=== PATIENT | female | born 1945 | race Caucasian/White ===

== ENCOUNTER 2020-08-20 07:39 | Day surgery (SDC) | payer MEDICARE ==
[2020-08-20] MEDS ORDERED: fentaNYL 100 MCG/2 ML SDV ONE (08:10)
[2020-08-20] MEDS ORDERED: Propofol 200 MG/20 ML SDV ONE (08:10)
[2020-08-20] MEDS ORDERED: Midazolam 1 MG/ML 2 ML SDV ONE (08:11)
[2020-08-20] MEDS ORDERED: Sodium Chloride 0.9% 1,000 ML IV SCH (08:30)
--- NOTE | 2020-08-20 11:15 | OR ---
DATE OF PROCEDURE: SURGEON: Paoc Mcfarland MD PROCEDURES: 1. Esophagogastroduodenoscopy. 2. Colonoscopy. FINDINGS: 1. 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 2. Marginal ulcer in proximity to the aforementioned fistula. 3. Mild gastritis in the gastric pouch. 4. Diverticulosis, extensive, mostly limited to sigmoid colon. PREOPERATIVE DIAGNOSIS: Unintentional weight loss. POSTOPERATIVE DIAGNOSIS: Unintentional weight loss. RISKS: Risks, benefits, alternatives, and limitations including but not limited to infection, bleeding, perforation, and false positives and false negatives were explained to the patient and wished to proceed. PROCEDURE IN DETAIL: The patient was placed in left lateral decubitus position. The EGD scope was introduced and advanced atraumatically into the area of the pouch. Marginal ulcer was noted. This was not actively bleeding, but clots were noted with this. The patient did have some mild gastritis associated with this. In addition, the patient had a blind end Ivelisse-en-Y limb and subsequently an additional opening, which could be used with the scope to enter the remnant stomach. The GE junction was inspected without abnormality. The esophagus was normal. A digital rectal exam was performed next. The scope was introduced and advanced atraumatically to the ileocecal valve. A photo was taken. The scope was brought back through the entire colon. She was noted to be very tortuous. The patient also had diverticulosis that was described as [id number] within the sigmoid colon without evidence of diverticulitis. DICTATION ENDS HERE. Paco Mcfarland MD /[id number]
[2020-08-20 13:10] VITALS: BP 105/64; PULSE 60
== END 2020-08-20 11:05 | disposition home or self-care (01) ==
LOC: JP.SDS 07:39
PROVIDERS: ATTEND Surgery
DX: K25.9 Gastric ulcer, unspecified as acute or chronic, without hemorrhage or perforation (principal); K29.70 Gastritis, unspecified, without bleeding; K57.30 Diverticulosis of large intestine without perforation or abscess without bleeding; K31.6 Fistula of stomach and duodenum; R63.4 Abnormal weight loss
CPT/HCPCS: 43239; 45378; J2250; J2704; J3010; J7030

== ENCOUNTER 2022-06-29 17:49 | Emergency (ER) | payer MEDICARE ==
[2022-06-29 18:01] VITALS: BP 107/50; PULSE 57
== END 2022-06-29 18:58 | disposition home or self-care (01) ==
LOC: JP.ED 17:49
DX: E86.0 Dehydration (principal); E03.9 Hypothyroidism, unspecified; Z79.899 Other long term (current) drug therapy; Z98.84 Bariatric surgery status; Z72.0 Tobacco use; Z90.49 Acquired absence of other specified parts of digestive tract
CPT/HCPCS: 93005; 99284

== ENCOUNTER 2022-08-29 07:18 | Day surgery (SDC) | payer MEDICARE ==
[2022-08-29] MEDS ORDERED: Dextrose 5%-Lactated Ringers 1,000 ML IV SCH (08:00)
[2022-08-29] MEDS ORDERED: Propofol 200 MG/20 ML SDV ONE (09:09)
[2022-08-29 10:36] VITALS: BP 122/56; PULSE 62
[2022-08-29 11:29] LABS: HEMATOCRIT 41.1 % (34.3-46.0); HEMOGLOBIN 13.4 g/dL (11.2-15.5); MEAN CORPUSCULAR HEMOGLOBIN 32.2 pg (31.6-35.5); MEAN CORPUSCULAR HGB CONC 32.6 g/dL (31.6-35.5); MEAN CORPUSCULAR VOLUME 98.8 fL (81.4-99.0); RED BLOOD CELL COUNT 4.16 M/uL (3.77-5.24); WHITE BLOOD CELL COUNT,WBC 4.5 K/uL (3.2-11.0)
[2022-08-29 12:14] LABS: A/G RATIO 1.1 (1.2-2.2); ALANINE AMINOTRANSFERASE,ALT 19 U/L (12-78); ALBUMIN 3.5 g/dL (3.4-5.0); ALKALINE PHOSPHATASE 86 U/L (46-116); ANION GAP 5.1 mmol/L (5.0-14.0); ASPARTATE AMNIOTRANSFERASE,AST 19 U/L (15-37); BILIRUBIN TOTAL 0.5 mg/dL (0.2-1.0); BLOOD UREA NITROGEN,BUN 10 mg/dL (7-18); CARBON DIOXIDE,CO2 31 mmol/L (21-32); CHLORIDE,CL 105 mmol/L (100-108); CREATININE 0.8 mg/dL (0.6-1.0); EST CRCL DRUG DOSING (CG) 44.98 mL/min; ESTIMATED GFR 76 mL/min (>60); FERRITIN 55 ng/ml (8-388); GLUCOSE RANDOM 115 mg/dL (74-106); PHOSPHORUS 3.4 mg/dL (2.5-4.9); PROTEIN TOTAL,TP 6.7 g/dL (6.4-8.2); SODIUM,NA 141 mmol/L (140-148)
== END 2022-08-29 11:20 | disposition home or self-care (01) ==
LOC: JP.SDS 07:18
PROVIDERS: ATTEND Surgery
DX: K31.6 Fistula of stomach and duodenum (principal); R63.4 Abnormal weight loss; E03.9 Hypothyroidism, unspecified; K90.9 Intestinal malabsorption, unspecified; Z98.84 Bariatric surgery status; Z87.19 Personal history of other diseases of the digestive system
CPT/HCPCS: 43235; 80053; 82306; 82525; 82607; 82728; 82746; 83735; 83970; 84100; 84255; 84425; 84590; 84630; 85027; J2704; J7121; 36415

== ENCOUNTER 2023-09-17 08:49 | Emergency (ER) | payer MEDICARE ==
[2023-09-17] MEDS: Sodium Chloride 0.9% 1,000 ML IV STA (09:21)
[2023-09-17] MEDS: Ondansetron 4 MG/2 ML SDV IVPUSH ONE (09:22)
[2023-09-17 09:33] LABS: BASOPHILS PERCENT AUTO 0.2 % (0.1-1.3); EOSINOPHILS PERCENT AUTO 0.2 % (0.0-5.4); HEMATOCRIT 39.2 % (34.3-46.0); HEMOGLOBIN 13.2 g/dL (11.2-15.5); IMMATURE GRAN ABSOLUTE AUTO 0.03 K/uL (0.00-0.23); IMMATURE GRAN PERCENT AUTO 0.3 % (0.0-0.7); LYMPHOCYTES ABSOLUTE AUTO 0.49 K/uL (0.8-3.3); LYMPHOCYTES PERCENT AUTO 5.7 % (11.4-47.7); MEAN CORPUSCULAR HEMOGLOBIN 32.4 pg (31.6-35.5); MEAN CORPUSCULAR HGB CONC 33.7 g/dL (31.6-35.5); MEAN CORPUSCULAR VOLUME 96.1 fL (81.4-99.0); MONOCYTES ABSOLUTE AUTO 0.17 K/uL (0.20-0.90); NEUTROPHILS ABSOLUTE AUTO 7.94 K/uL (1.0-7.6); NEUTROPHILS PERCENT AUTO 91.6 % (40.0-78.1); PLATELET COUNT,PLT 164 K/uL (130-375); RED BLOOD CELL COUNT 4.08 M/uL (3.77-5.24); WHITE BLOOD CELL COUNT,WBC 8.7 K/uL (3.2-11.0)
[2023-09-17 09:34] LABS: BASOPHILS ABSOLUTE AUTO 0.02 K/uL (0.00-0.10); EOSINOPHILS ABSOLUTE AUTO 0.02 K/uL (0.00-0.40)
[2023-09-17 09:50] LABS: A/G RATIO 1.1 (1.2-2.2); ALANINE AMINOTRANSFERASE,ALT 21 U/L (12-78); ALBUMIN 3.5 g/dL (3.4-5.0); ALKALINE PHOSPHATASE 84 U/L (46-116); ANION GAP 5.6 mmol/L (5.0-14.0); ASPARTATE AMNIOTRANSFERASE,AST 21 U/L (15-37); BILIRUBIN TOTAL 0.5 mg/dL (0.2-1.0); BLOOD UREA NITROGEN,BUN 13 mg/dL (7-18); CALCIUM 8.8 mg/dL (8.5-10.1); CARBON DIOXIDE,CO2 31 mmol/L (21-32); CHLORIDE,CL 105 mmol/L (100-108); CREATININE 0.8 mg/dL (0.6-1.0); EST CRCL DRUG DOSING (CG) 44.28 mL/min; ESTIMATED GFR 76 mL/min (>60); GLUCOSE RANDOM 117 mg/dL (74-106); POTASSIUM,K 4.2 mmol/L (3.6-5.2); PROTEIN TOTAL,TP 6.8 g/dL (6.4-8.2); SODIUM,NA 142 mmol/L (140-148)
[2023-09-17 09:59] LABS: APPEARANCE,URINE CLEAR (CLEAR); BILIRUBIN,URINE NEGATIVE (NEGATIVE); COLOR,URINE YELLOW (YELLOW); GLUCOSE,URINE NEGATIVE (NEGATIVE); KETONES,URINE NEGATIVE (NEGATIVE); LEUKOCYTE ESTERASE,URINE NEGATIVE (NEGATIVE); NITRITE,URINE NEGATIVE (NEGATIVE); OCCULT BLOOD,URINE TRACE-INTACT (NEGATIVE); PROTEIN,URINE TRACE mg/dL (NEGATIVE)
[2023-09-17 10:06] LABS: AMORPHOUS SEDIMENT,URINE NOT SEEN; BACTERIA,URINE NOT SEEN; EPITHELIAL CELLS,URINE RARE; MUCUS,URINE NOT SEEN; RBC,URINE 0-5 (0-5); WBC,URINE 0-5 (0-5)
[2023-09-17 10:24] VITALS: PULSE 52
[2023-09-17 11:45] VITALS: BP 124/66
== END 2023-09-17 11:46 | disposition home or self-care (01) ==
LOC: JP.ED 08:49
DX: R10.84 Generalized abdominal pain (principal); E03.9 Hypothyroidism, unspecified; Z90.49 Acquired absence of other specified parts of digestive tract; Z79.890 Hormone replacement therapy; Z79.899 Other long term (current) drug therapy; Z79.891 Long term (current) use of opiate analgesic
CPT/HCPCS: 36415; 74176; 80053; 81001; 83605; 83690; 85025; 96361; 96374; 99285; J2405; J7030

== ENCOUNTER 2023-09-17 18:05 | Emergency (ER) | payer MEDICARE ==
[2023-09-17 19:14] LABS: BASOPHILS ABSOLUTE AUTO 0.03 K/uL (0.00-0.10); BASOPHILS PERCENT AUTO 0.3 % (0.1-1.3); EOSINOPHILS ABSOLUTE AUTO 0.03 K/uL (0.00-0.40); EOSINOPHILS PERCENT AUTO 0.3 % (0.0-5.4); HEMATOCRIT 40.6 % (34.3-46.0); HEMOGLOBIN 13.7 g/dL (11.2-15.5); IMMATURE GRAN ABSOLUTE AUTO 0.02 K/uL (0.00-0.23); IMMATURE GRAN PERCENT AUTO 0.2 % (0.0-0.7); LYMPHOCYTES ABSOLUTE AUTO 0.69 K/uL (0.8-3.3); LYMPHOCYTES PERCENT AUTO 7.7 % (11.4-47.7); MEAN CORPUSCULAR HEMOGLOBIN 32.5 pg (31.6-35.5); MEAN CORPUSCULAR HGB CONC 33.7 g/dL (31.6-35.5); MEAN CORPUSCULAR VOLUME 96.4 fL (81.4-99.0); MONOCYTES ABSOLUTE AUTO 0.32 K/uL (0.20-0.90); MONOCYTES PERCENT AUTO 3.6 % (3.3-12.6); NEUTROPHILS PERCENT AUTO 87.9 % (40.0-78.1); PLATELET COUNT,PLT 180 K/uL (130-375); RED BLOOD CELL COUNT 4.21 M/uL (3.77-5.24)
[2023-09-17] MEDS: HYDROmorphone 0.5 MG/0.5 ML Syringe IVPUSH ONE (19:39)
[2023-09-17] MEDS: diphenhydrAMINE 50 MG/ML SDV IVPUSH ONE (19:39)
[2023-09-17] MEDS: Sodium Chloride 0.9% 10 ML Syringe FLUSH ONE (19:40)
[2023-09-17] MEDS: Sodium Chloride 0.9% 1,000 ML IV SCH (19:43)
[2023-09-17] MEDS: Sodium Chloride 0.9% 100 ML IV ONE (19:55)
[2023-09-17] MEDS: Iopamidol 612 MG/ML 100 ML Bottle IV ONE (19:55)
[2023-09-18] MEDS: HYDROmorphone 0.5 MG/0.5 ML Syringe IVPUSH PRN (01:34)
[2023-09-18] MEDS: HYDROmorphone 0.5 MG/0.5 ML Syringe IVPUSH ONE (09:32)
[2023-09-18] MEDS: Sodium Chloride 0.9% 1,000 ML IV SCH (09:32)
[2023-09-18] MEDS: Pantoprazole 40 MG Vial IVPUSH ONE (10:18)
[2023-09-18] MEDS: Pantoprazole 40 MG Tab.CR PO STA (10:21)
[2023-09-18 14:43] VITALS: BP 114/71; PULSE 57
== END 2023-09-18 15:57 ==
LOC: JP.ED 18:05
DX: K56.609 Unspecified intestinal obstruction, unspecified as to partial versus complete obstruction (principal); E03.9 Hypothyroidism, unspecified; Z79.890 Hormone replacement therapy; Z90.49 Acquired absence of other specified parts of digestive tract; Z79.899 Other long term (current) drug therapy
CPT/HCPCS: 36415; 74177; 84484; 85025; 93005; 96361; 96374; 96375; 96376; 99285-25; J1170; J1200; J2470; J3490; J7030; Q9967